=== PATIENT | male | born 1955 | race Caucasian/White ===

== ENCOUNTER 2019-07-30 15:17 | Emergency (ER) | payer OTHER, SELFPAY ==
[2019-07-30 15:19] VITALS: BP 145/83; PULSE 81; RESP 17; TEMP 36.1; O2SAT 98; BMI 32.4
--- NOTE | 2019-07-30 16:08 | EKG12_ITS ---
Test Reason : PALPATATIONS Blood Pressure : / mmHG Vent. Rate : 074 BPM Atrial Rate : 074 BPM P-R Int : 156 ms QRS Dur : 090 ms QT Int : 390 ms P-R-T Axes : 042 025 044 degrees QTc Int : 432 ms Normal sinus rhythm Normal ECG Confirmed by REBECA DE GUZMAN, CHRISTIANA ([id number]), film or videotape editor FELECIA SMILEY ([id number]) on 08/05/2019 2:06:30 PM Referred By: Confirmed By:JANE JOSE MD
[2019-07-30] MEDS: Aspirin 81 MG TAB.CHEW 324 MG PO (16:19)
--- NOTE | 2019-07-30 16:19 | ED.VISSUMM ---
- ER Visit Summary Date of Service: 07/30/19 Chief Complaint: Palpitations History of Present Illness: The patient is a 64 M who presents with palpitations that began 2 days ago. Patient states these began when he woke up. Patient states he felt like his heart was beating fast and irregular. Patient states these have improved since he arrived here in the emergency department. Patient states she has not had any irregular heartbeat since that time. Patient admits to some tightness in his chest when he was having the palpitations. Patient denies any nausea or vomiting. Patient denies any fevers or chills. Patient does admit to some diaphoresis when he was having the palpitations. Patient also admits to some shortness of breath with exertion. Physical Examination: Vital signs are stable. Patient is afebrile. Patient is in no acute distress. Oral mucosa is pink and moist. Neck is supple. Trachea is midline. There is no JVD noted. Heart was regular rate and rhythm. Lungs are clear and equal bilaterally. Abdomen is soft. Bowel sounds are normal. There is no tenderness. There is no rebound or guarding noted. Skin is warm dry. Cranial nerves II through XII are intact. There are no focal motor or sensory deficits noted. Extremities are intact. There is no calf tenderness or edema. Test Results: EKG showed normal sinus rhythm with a rate of 74. There are no acute ST or T wave changes. CBC, basic metabolic profile, troponin were obtained were all within normal limits. Portable chest x-ray was obtained. There is no acute cardiopulmonary process. This was interpreted by the radiologist and reviewed by myself. Emergency Department Course and Treatment: Patient was feeling better on reevaluation. Patient had no further symptoms here in the emergency department. Patient was instructed to follow-up with his primary care physician in 5 to 7 days. Patient was instructed return if worse in any way. Patient understood and was agreeable with the plan. All questions were answered. Disposition: Discharge home Impression: Palpitations This note was generated with [employer] dictation software. It may contain incorrect words, spelling, and punctuation that were not noted in review of the chart prior to signing ED Disposition - Plan for ED Patient: Disposition: Home or Assisted Living Diagnosis: Palpitations Instructions: ED Palpitations Referrals: Usama Dumont, [Primary Care Provider] - 5-7 Days
--- NOTE | 2019-07-30 16:21 | RAD_ITS ---
STUDY: X-RAY CHEST REASON FOR EXAM: Male, 64 years old. Palpitations TECHNIQUE: Single frontal view of the chest. COMPARISON: None. FINDINGS: Cardiac silhouette unremarkable. Pulmonary vascularity unremarkable. Aorta atherosclerotic. No focal airspace opacities. No pleural effusions. Upper abdomen unremarkable. Osseous structures intact. No pneumothorax. RAD/Chest 1 View (Portable) IMPRESSION: No acute cardiopulmonary findings Electronically Signed: Vicente Ruiz, at 17:40 EDT Tel , Service support ,
[2019-07-30 16:31] LABS: Absolute Lymphocyte Count 1.57 X10^3/uL (0.83-4.51); Absolute Neutrophil Count 4.6 X10^3/uL (2.0-7.7); Basophil# 0.02 X10^3/uL; Basophil% 0.3 % (0-1); Eosinophil# 0.05 X10^3/uL; Eosinophils% 0.7 % (0-5); Hematocrit 44.4 % (40-54); Lymphocyte # 1.57 X10^3/ul (4.0); Lymphocyte % 21.7 % (19-41); Mean Corp Hgb Conc 33.8 g/dL (32-36); Mean Corpuscular Hgb 30.4 pg (27.0-32.0); Mean Corpuscular Volume 90.1 fL (80-94); Mean Platelet Vol. 8.9 fl (6.2-12.0); Monocyte# 0.92 X10^3/uL; Monocyte% 12.7 % (0-10); NRBC Flagged by Analyzer 0 % (0-5); Neutrophil # 4.64 X10^3/uL (2.7-7.7); Platelet Count 324 K/mm3 (150-450); RBC Distribution Width CV 11.8 % (11.6-14.6); RBC Distribution Width SD 38.5 fl (35.1-43.9); Red Blood Count 4.93 M/mm3 (4.6-6.2); White Blood Count 7.2 K/mm3 (4.4-11.0)
[2019-07-30 16:42] LABS: Anion Gap 6 (5-15); BUN 20 mg/dL (7-18); BUN/Creat Ratio 17.4 RATIO (10-20); Calcium,Total 8.7 mg/dL (8.5-10.1); Chloride 106 mmol/L (98-107); Creatinine, Serum 1.15 mg/dL (0.70-1.30); EST Glomerular Filtration Rate 68 mL/min (>60); Est Glom Filt Rate - Afr Amer 82 mL/min (>60); Estimated Creatinine Clearance 66.12 ml/min; Glucose 108 mg/dL (74-106); Potassium 3.7 mmol/L (3.5-5.1); Sodium Level 139 mmol/L (136-145)
[2019-07-30 17:50] VITALS: BP 127/92; PULSE 70; RESP 13; O2SAT 97
== END 2019-07-30 18:43 | disposition home or self-care (01) ==
PROVIDERS: Emergency Provider Emergency Medicine; PCP Family Medicine
DX: R00.2 Palpitations (principal); R07.89 Other chest pain; R61 Generalized hyperhidrosis; R06.09 Other forms of dyspnea; Z87.11 Personal history of peptic ulcer disease; Z86.711 Personal history of pulmonary embolism
CPT/HCPCS: 71045; 80048; 84484; 85025; 93005; 99285; A4216

== ENCOUNTER → 2020-08-18 08:46 | Outpatient (CLI) | payer OTHER, SELFPAY ==
--- NOTE | 2020-08-18 08:52 | EKG12_ITS ---
Test Reason : PRE OP Blood Pressure : / mmHG Vent. Rate : 048 BPM Atrial Rate : 048 BPM P-R Int : 172 ms QRS Dur : 088 ms QT Int : 460 ms P-R-T Axes : 064 071 067 degrees QTc Int : 410 ms Sinus bradycardia Otherwise normal ECG Confirmed by ITA DE GUZMAN, ABELARDO ([id number]), assignment desk editor MARTÍN ANN ([id number]) on 08/19/2020 9:24:32 AM Referred By: Angel Roe Confirmed By:ABELARDO JEAN BAPTISTE MD
[2020-08-18 10:15] LABS: Hematocrit 45.3 % (40-54); Hemoglobin 14.9 g/dL (13.0-16.5); Mean Corp Hgb Conc 32.9 g/dL (32-36); Mean Corpuscular Hgb 30.2 pg (27.0-32.0); Mean Corpuscular Volume 91.9 fL (80-94); Mean Platelet Vol. 9.3 fl (6.2-12.0); Platelet Count 225 K/mm3 (150-450); RBC Distribution Width CV 12.2 % (11.6-14.6); RBC Distribution Width SD 41.1 fl (35.1-43.9); Red Blood Count 4.93 M/mm3 (4.6-6.2); White Blood Count 4.9 K/mm3 (4.4-11.0)
[2020-08-18 10:43] LABS: Anion Gap 3 (5-15); BUN 19 mg/dL (7-18); BUN/Creat Ratio 20.7 RATIO (10-20); Calcium,Total 8.8 mg/dL (8.5-10.1); Chloride 106 mmol/L (98-107); Creatinine, Serum 0.92 mg/dL (0.70-1.30); EST Glomerular Filtration Rate 88 mL/min (>60); Est Glom Filt Rate - Afr Amer 106 mL/min (>60); Glucose 89 mg/dL (74-106); Potassium 3.9 mmol/L (3.5-5.1); Sodium Level 138 mmol/L (136-145)
== END ==
PROVIDERS: PCP Family Medicine; Referring Provider Otolaryngology; Visit Provider Otolaryngology
DX: Z03.818 Encounter for observation for suspected exposure to other biological agents ruled out (principal)
CPT/HCPCS: 36415; 80048; 85027; 87635; 93005; C9803; U0002

== ENCOUNTER 2021-05-19 15:31 | Outpatient (CLI) | payer OTHER, SELFPAY | END 2021-05-19 23:59 | disposition short-term general hospital (02) | LOC: LABSPEC 15:32 | PROVIDERS: PCP Family Medicine; Visit Provider Otolaryngology Otolaryngology/Facial Plastic Surgery | DX: J32.9 Chronic sinusitis, unspecified (principal) | CPT/HCPCS: 87070; 87077; 87186; 87205 ==

== ENCOUNTER 2021-05-19 16:33 | Outpatient (CLI) | payer SELFPAY, OTHER ==
--- NOTE | 2021-05-19 15:10 | RAD_ITS ---
STUDY: X-RAY CHEST REASON FOR EXAM: Male, 66 years old. CHRONIC COUGH TECHNIQUE: PA and lateral views of the chest. COMPARISON: Comparison is made with prior study dated 07/30/2019. FINDINGS: Hyperinflation. There is no demonstrated pleural abnormality. Normal size heart. Normal mediastinum and merrill. Normal visualized pulmonary arteries. There is atherosclerotic calcification of the aortic arch with tortuosity. There are diffuse degenerative changes of the visualized thoracic spine. Normal visualized ribs, clavicles, and shoulders. There is no demonstrated abnormality of the visualized soft tissue structures of the upper abdomen. RAD/Chest PA and Lateral IMPRESSION: Hyperinflation. The lungs are clear. Electronically Signed: Law Lau MD at 15:38 EST , Service support ,
== END 2021-05-19 23:59 | disposition short-term general hospital (02) ==
LOC: RAD.FUTURE 16:35 → RAD 16:36
PROVIDERS: PCP Family Medicine; Referring Provider Nurse Practitioner Family; Visit Provider Nurse Practitioner Family
DX: R05.3 Chronic cough (principal)
CPT/HCPCS: 71046

== ENCOUNTER → 2021-09-23 | Outpatient (CLI) | payer SELFPAY, OTHER ==
--- NOTE | 2021-09-23 09:36 | EKG12_ITS ---
Test Reason : PREOP Blood Pressure : / mmHG Vent. Rate : 051 BPM Atrial Rate : 051 BPM P-R Int : 170 ms QRS Dur : 088 ms QT Int : 446 ms P-R-T Axes : 049 039 049 degrees QTc Int : 411 ms Sinus bradycardia Otherwise normal ECG Confirmed by EUGENIO DE GUZMAN, SOCORRO ([id number]), scientific publications editor LILA MAHARAJ ([id number]) on 09/27/2021 1:02:54 PM Referred By: ZOFIA Confirmed By:SOCORRO BECKER MD
[2021-09-23 10:55] LABS: Hematocrit 43.7 % (40-54); Hemoglobin 14.3 g/dL (13.0-16.5); Mean Corp Hgb Conc 32.7 g/dL (32-36); Mean Corpuscular Hgb 30.8 pg (27.0-32.0); Mean Platelet Vol. 9.3 fl (6.2-12.0); Platelet Count 238 K/mm3 (150-450); RBC Distribution Width CV 12.6 % (11.6-14.6); RBC Distribution Width SD 43.6 fl (35.1-43.9); Red Blood Count 4.65 M/mm3 (4.6-6.2); White Blood Count 4.9 K/mm3 (4.4-11.0)
[2021-09-23 11:16] LABS: Anion Gap 4 (5-15); BUN 11 mg/dL (7-18); BUN/Creat Ratio 11.8 RATIO (10-20); Calcium,Total 8.8 mg/dL (8.5-10.1); Chloride 108 mmol/L (98-107); Creatinine, Serum 0.93 mg/dL (0.70-1.30); EST Glomerular Filtration Rate 86 mL/min (>60); Est Glom Filt Rate - Afr Amer 104 mL/min (>60); Glucose 76 mg/dL (74-106); Potassium 3.8 mmol/L (3.5-5.1); Sodium Level 141 mmol/L (136-145)
== END | disposition home or self-care (01) ==
PROVIDERS: PCP Family Medicine; Visit Provider Otolaryngology
DX: Z01.812 Encounter for preprocedural laboratory examination (principal); Z01.810 Encounter for preprocedural cardiovascular examination
CPT/HCPCS: 36415; 80048; 85027; 93005

== ENCOUNTER 2023-01-22 15:57 | Emergency (ER) | payer OTHER, SELFPAY ==
[2023-01-22 15:58] VITALS: BP 170/144; PULSE 97; RESP 16; TEMP 36.4; O2SAT 78; BMI 32.0
[2023-01-22] MEDS: Rivaroxaban 15 MG Tablet PO (16:57)
--- NOTE | 2023-01-22 17:12 | NURSING ---
LEFT MESSAGE FOR DR KUMAR ON OFFICE PHONE
--- NOTE | 2023-01-22 18:46 | ED.VIS.LOWEX ---
HPI History of Present Illness HPI Narrative: Patient presents with pain and swelling to his right lower extremity that has been getting worse over the last 4 days. Patient had an outpatient venous duplex of his right lower extremity which showed DVT. Patient states that the tech told him it was loosely attached. Patient has a history of DVT and PE. Patient states he is not on any anticoagulants. Patient states he had a problem with bleeding ulcers when he was on anticoagulants in the past. Patient states that he has not had any bleeding ulcers for several years. Patient denies any chest pain or shortness of breath. Chief Complaint: Lower Extremity Injury Informant: patient Onset/Context/Timing Onset: Days (4) Context: Gradual Onset Timing: Continuous Quality of Pain: Aching Location: Right lower extremity Worsened by: Ambulation and standing Relieved by: Elevation Associated Symptoms Associated Symptoms: Negative for Parasthesia, Weakness or Loss of Funtion PFSH PFS Medical History Acute bronchitis, unspecified Acute sinusitis, unspecified History of broken leg Hypertension Home Medications atenolol 50 mg tablet 50 mg PO DAILY blood pressure 07/30/19 [History Last Taken 07/30/19] hydrochlorothiazide 25 mg tablet 12.5 mg PO DAILY 07/30/19 [History Last Taken 07/30/19] ibuprofen 600 mg tablet 600 mg PO Q6H PRN PRN Pain Or Fever 07/30/19 [History Last Taken Unknown] levofloxacin 750 mg tablet 750 mg PO DAILY #10 tabs 04/20/21 [Rx Last Taken Unknown] rivaroxaban 15 mg tablet (Xarelto) 15 mg PO BID #42 TABLETS 01/22/23 [Rx Last Taken Unknown] Allergy/AdvReac Type Severity Reaction Status Date / Time No Known Allergies Allergy Verified 01/22/23 15:58 Surgical History (Updated 01/22/23 @ 19:[address] Vinicio Rivera DO) S/P hernia repair S/P ORIF (open reduction internal fixation) fracture Social History household members: spouse Smoking Status: Former smoker alcohol intake: never substance use type: does not use do you feel safe at home: Yes ROS ROS ED Constitutional Constitutional ED: Denies chills or fever(s) Eyes Eyes: Denies blurry vision or change in vision ENT ENT ED: Denies rhinorrhea or sore throat Cardiovascular Cardiovascular: Denies chest pain or palpitations Respiratory/Chest Respiratory/Chest: Denies cough or dyspnea Gastrointestinal Gastrointestinal: Denies nausea or vomiting Genitourinary Genitourinary ED: Denies dysuria or hematuria Musculoskeletal Musculoskeletal: Denies back pain or neck pain Integumentary Denies abscess or rash Neurologic Neurologic: Denies headache(s) or weakness Allergic/Immunologic Allergic/Immunologic ED: Denies mouth swelling or urticaria EXAM Physical Exam Const Vital Signs: 01/22/23 15:58 Temperature 97.6 F L Temperature Source Temporal Pulse Rate 97 Respiratory Rate 16 Blood Pressure 170/144 H Blood Pressure Mean 152 Pulse Ox 78 Oxygen Delivery Method Room Air Positive well nourished and well developed General Appearance ED: well developed and NAD HEENT Reports moist mucous membranes Neck full ROM and supple Resp normal respiratory effort and clear to auscultation bilaterally Cardio regular rate and regular rhythm GI non-tender and non-distended Palpation: soft Extremity Extremity Narrative: There is tenderness and edema of the right calf and distal thigh. There is no ecchymosis noted. There is no bony crepitance or step-off noted. There is good range of motion. Pedal pulses are equal bilaterally. Neuro oriented x3, CN's II-XII intact bilaterally, moves all extremities and no sensory deficits noted Sensorium / Orientation: alert Motor Exam: strength 5/5 throughout Psych mental status grossly normal MDM MDM MDM Narrative Medical decision making narrative: Patient was advised that he does not need to be admitted for this. Patient was given a dose of Xarelto here. Patient was given a prescription for Xarelto. Patient was instructed to keep his leg elevated. Patient was instructed to follow-up with his primary care physician in 5 to 7 days. Patient understood and was agreeable with the plan. All questions were answered. Discharge Plan Triage Chief Complaint: Lower Extremity Injury ED Provider: Vinicio Rivera Dx/Rx/DC Orders Clinical Impression: Acute deep vein thrombosis (DVT) of right lower extremity Instructions: ED Deep Vein Thrombosis (DVT) Prescriptions: New Xarelto 15 mg tablet 15 mg PO BID Qty: 42 0RF No Action levofloxacin 750 mg tablet 750 mg PO DAILY Qty: 10 0RF hydrochlorothiazide 25 MG tablet 12.5 mg PO DAILY ibuprofen 600 MG tablet 600 mg PO Q6H PRN PRN (Reason: Pain Or Fever) atenolol 50 MG tablet 50 mg PO DAILY Primary Care Provider: Usama Dumont Referrals: Usama Dumont DO [Primary Care Provider] - 5-7 Days Disposition Disposition: Home, Self Care
[2023-01-22 19:42] VITALS: BP 145/78; PULSE 79; RESP 18; O2SAT 96
== END 2023-01-22 19:43 | disposition home or self-care (01) ==
PROVIDERS: Emergency Provider Emergency Medicine; PCP Family Medicine; Visit Provider Emergency Medicine
DX: I82.401 Acute embolism and thrombosis of unspecified deep veins of right lower extremity (principal); I10 Essential (primary) hypertension; Z87.891 Personal history of nicotine dependence; Z79.899 Other long term (current) drug therapy
CPT/HCPCS: 99283

== ENCOUNTER → 2023-01-22 | Outpatient (CLI) | payer SELFPAY, OTHER ==
--- NOTE | 2023-01-22 14:56 | VDLE_ITS ---
Reason For Study: pain RIGHT LEFT CFV is partially compressible with decreased CFV is compressible, spontaneous, phasic, flow. DVT is loosley attached. competent, and demonstrates normal Acute deep vein thrombosis is noted in the augmentation. FV. It is dilated and NONCOMPRESSIBLE. Acute deep vein thrombosis is noted in the POP V. It is dilated and NONCOMPRESSIBLE. Acute deep vein thrombosis is noted in the T/P Trunk. It is dilated and NONCOMPRESSIBLE. Acute deep vein thrombosis is noted in the Gastrocnemius V. It is dilated and NONCOMPRESSIBLE. Acute deep vein thrombosis is noted in the PTV. It is dilated and NONCOMPRESSIBLE. Acute deep vein thrombosis is noted in the Per V. It is dilated and NONCOMPRESSIBLE. Acute deep vein thrombosis is noted in the Soleus V. It is dilated and NONCOMPRESSIBLE. Acute SVT is noted in the SSV. It is dilated and noncompressible. GSV is normal. Procedure This is a venous duplex using B-mode, color flow and spectral Doppler. Exam performed in department. The exam was diagnostic. A preliminary report was called and/or faxed to Dr. Dumont. Pt taken to ED per Dr. Dumont. VL/Venous Duplex US, Unilateral Interpretation Summary Acute deep vein thrombosis is noted in the right common femoral vein, femoral v ein, popliteal vein, tibioperoneal trunk vein, gastrocnemius vein, posterior tibial vein, peroneal v ein, soleus vein. Acute superficial vein thrombosis is noted in the right small saphenous vein Ordering Physician: Usama Dumont Performed By: Miguel A Yeager RVT
== END | disposition home or self-care (01) ==
LOC: CVS 14:50
PROVIDERS: PCP Family Medicine; Referring Provider Family Medicine; Visit Provider Family Medicine
DX: M79.604 Pain in right leg (principal)
CPT/HCPCS: 93971